=== PATIENT | female | born 1945 | race Caucasian/White ===

== ENCOUNTER → 2018-07-08 07:50 | Outpatient (CLI) | payer MEDICARE, OTHER, SELFPAY ==
[2018-07-08 08:59] LABS: Add Manual Diff / Slide Review NO; Basophils Absolute Auto 100 /uL (0-100); Basophils Percent Auto 1.5 % (0-2); Eosinophils Absolute Auto 400 /uL (0-450); Hematocrit 41.1 % (36-46); Hemoglobin 13.6 g/dL (12.0-16.0); Lymphocytes Absolute Auto 1200 /uL (1100-4500); Lymphocytes Percent Auto 17.3 % (25-40); Mean Corpuscular HGB Conc 33.1 % (30-36); Mean Corpuscular Hemoglobin 28.7 PG (26-34); Mean Corpuscular Volume 86.7 fL (80-100); Monocytes Absolute Auto 600 /uL (0-900); Monocytes Percent Auto 9.2 % (3-14); Neutrophils Absolute Auto 4500 /uL (1500-7000); Platelet Count 311 X10^3/uL (150-400); Red Blood Cell Count 4.73 X10^6/uL (4.0-5.2); Red Cell Distribution Width 13.3 % (11.6-14.8); White Blood Cell Count 6.9 X10^3/uL (4.5-11.0)
[2018-07-08 09:07] LABS: Alanine Aminotransferase 29 IU/L (9-52); Albumin 4.4 g/dL (3.5-5.0); Albumin Globulin Ratio 1.6 (1.0-2.8); Alkaline Phosphatase 78 U/L (38-126); Aspartate Aminotransferase 24 IU/L (14-36); Bilirubin Total 1.4 mg/dL (0.2-1.3); Blood Urea Nitrogen 21 mg/dL (7-17); Calcium 9.5 mg/dL (8.4-10.2); Carbon Dioxide 27 mmol/L (22-32); Chloride 101 mmol/L (98-107); Cholesterol 175 mg/dL (140-199); Estimated Glomerular Filt Rate > 60.0 mL/min (>60); Globulin 2.7 g/dL (1.7-4.1); Glucose 108 mg/dL (80-110); HDL Cholesterol 65 mg/dL (40-60); HEMOLYSIS < 15 (0-50); LDL Cholesterol Calculated 100 mg/dL (<100); Sodium 137 mmol/L (137-145); Total Protein 7.1 g/dL (6.3-8.2); Triglycerides 52 mg/dL (35-150)
[2018-07-08 09:41] LABS: TSH w/ Reflex to FT4 1.94 uIU/mL (0.47-4.68)
== END ==
PROVIDERS: PCP Family Medicine; Visit Provider Family Medicine
DX: E03.9 Hypothyroidism, unspecified (principal); E21.3 Hyperparathyroidism, unspecified; I10 Essential (primary) hypertension
CPT/HCPCS: 36415; 80053; 80061; 84443; 85025

== ENCOUNTER → 2018-07-09 16:04 | Outpatient (CLI) | payer MEDICARE, OTHER, SELFPAY ==
--- NOTE | 2018-07-09 | DI.MG.S_ITS ---
BILATERAL DIGITAL SCREENING MAMMOGRAM 3D/2D WITH CAD: 07/09/2018 CLINICAL: Routine screening. Comparison is made to exams dated: 05/08/2017 mammogram, 03/28/2016 mammogram, and 03/23/2015 mammogram - [facility]. There are scattered fibroglandular elements in both breasts. Current study was also evaluated with a Computer Aided Detection (CAD) system. No significant masses, calcifications, or other findings are seen in either breast. There has been no significant interval change. IMPRESSION: NEGATIVE There is no mammographic evidence of malignancy. A 1 year screening mammogram is recommended. This exam was interpreted at Station ID: [id number]. NOTE: For mammograms, a report in lay terms will be sent to the patient. Approximately 15% of breast malignancies will not be visualized mammographically. In the management of a palpable breast mass, a negative mammogram must not discourage biopsy of a clinically suspicious lesion. Electronically Signed By: Susannah ramirez/abby:07/09/2018 18:35:20 letter sent: Normal Exam ACR BI-RADS Category 1: Negative 3341F
== END ==
PROVIDERS: PCP Family Medicine; Visit Provider Family Medicine
DX: Z12.31 Encounter for screening mammogram for malignant neoplasm of breast (principal)
CPT/HCPCS: 77063; 77067

== ENCOUNTER → 2018-11-26 10:16 | Outpatient (CLI) | payer MEDICARE, OTHER, SELFPAY ==
[2018-11-26 11:06] LABS: Add Manual Diff / Slide Review NO; Basophils Absolute Auto 100 /uL (0-100); Basophils Percent Auto 0.9 % (0-2); Eosinophils Absolute Auto 200 /uL (0-450); Eosinophils Percent Auto 3.7 % (2-4); Hematocrit 39.6 % (36-46); Hemoglobin 13.3 g/dL (12.0-16.0); Lymphocytes Absolute Auto 900 /uL (1100-4500); Mean Corpuscular HGB Conc 33.5 % (30-36); Mean Corpuscular Hemoglobin 28.9 PG (26-34); Monocytes Absolute Auto 500 /uL (0-900); Monocytes Percent Auto 7.8 % (3-14); Neutrophils Absolute Auto 4400 /uL (1500-7000); Neutrophils Percent Auto 72.6 % (50-75); Platelet Count 352 X10^3/uL (150-400); Red Cell Distribution Width 14.4 % (11.6-14.8); White Blood Cell Count 6.1 X10^3/uL (4.5-11.0)
[2018-11-26 12:28] LABS: BUN Creatinine Ratio 18.6 (6-22); Blood Urea Nitrogen 13 mg/dL (7-17); Calcium 10.1 mg/dL (8.4-10.2); Carbon Dioxide 29 mmol/L (22-32); Chloride 101 mmol/L (98-107); Estimated Glomerular Filt Rate > 60.0 mL/min (>60); Glucose 96 mg/dL (80-110); HEMOLYSIS < 15 (0-50); Potassium 4.9 mmol/L (3.4-5.1); Sodium 139 mmol/L (137-145)
== END ==
PROVIDERS: PCP Family Medicine; Visit Provider Podiatrist
DX: Z01.818 Encounter for other preprocedural examination (principal); Z01.812 Encounter for preprocedural laboratory examination
CPT/HCPCS: 36415; 80048; 85025; 93005

== ENCOUNTER → 2019-11-07 08:53 | Outpatient (CLI) | payer MEDICARE, OTHER, SELFPAY ==
[2019-11-07 10:56] LABS: TSH w/ Reflex to FT4 1.46 uIU/mL (0.47-4.68)
== END ==
PROVIDERS: PCP Family Medicine; Referring Provider Family Medicine; Visit Provider Family Medicine
DX: E03.9 Hypothyroidism, unspecified (principal)
CPT/HCPCS: 36415; 84443

== ENCOUNTER → 2020-06-15 08:16 | Outpatient (CLI) | payer MEDICARE, OTHER, SELFPAY ==
--- NOTE | 2020-06-15 | DI.MG.S_ITS ---
BILATERAL DIGITAL SCREENING MAMMOGRAM 3D/2D WITH CAD: 06/15/2020 CLINICAL: Routine screening. Comparison is made to exams dated: 07/09/2018 mammogram, 05/08/2017 mammogram, and 03/28/2016 mammogram - [facility]. There are scattered fibroglandular elements in both breasts. Current study was also evaluated with a Computer Aided Detection (CAD) system. No significant masses, calcifications, or other findings are seen in either breast. There has been no significant interval change. IMPRESSION: NEGATIVE There is no mammographic evidence of malignancy. A 1 year screening mammogram is recommended. This exam was interpreted at Station ID: [id number]. NOTE: For mammograms, a report in lay terms will be sent to the patient. Approximately 15% of breast malignancies will not be visualized mammographically. In the management of a palpable breast mass, a negative mammogram must not discourage biopsy of a clinically suspicious lesion. Electronically Signed By: Joshua Alvarenga M.D., jr/abby:06/15/2020 16:07:52 letter sent: Normal Exam ACR BI-RADS Category 1: Negative 3341F
[2020-06-15 10:51] LABS: Alanine Aminotransferase 15 IU/L (<35); Albumin 4.4 g/dL (3.5-5.0); Albumin Globulin Ratio 1.8 (1.0-2.8); Alkaline Phosphatase 68 U/L (38-126); Aspartate Aminotransferase 22 IU/L (14-36); BUN Creatinine Ratio 27.7 (6-22); Blood Urea Nitrogen 18 mg/dL (7-17); Calcium 9.6 mg/dL (8.4-10.2); Carbon Dioxide 29 mmol/L (22-32); Chloride 98 mmol/L (98-107); Estimated Glomerular Filt Rate > 60.0 mL/min (>60); Globulin 2.4 g/dL (1.7-4.1); Glucose 96 mg/dL (80-110); HEMOLYSIS < 15 (0-50); Potassium 4.3 mmol/L (3.4-5.1); Sodium 133 mmol/L (137-145); Total Protein 6.8 g/dL (6.3-8.2)
[2020-06-15 11:23] LABS: Thyroid Stimulating Hormone 2.39 uIU/mL (0.47-4.68)
== END ==
PROVIDERS: PCP Family Medicine; Referring Provider Family Medicine; Visit Provider Family Medicine
DX: Z12.31 Encounter for screening mammogram for malignant neoplasm of breast (principal); E21.3 Hyperparathyroidism, unspecified; I10 Essential (primary) hypertension
CPT/HCPCS: 36415; 77063; 77067; 80053; 84443

== ENCOUNTER → 2020-08-05 11:53 | Outpatient (CLI) | payer MEDICARE, OTHER, SELFPAY ==
--- NOTE | 2020-08-05 11:54 | DI.US.S_ITS ---
PROCEDURE: US EXTREMITY NONVASC LOWER LT INDICATIONS: cystic mass behind L knee, ? Loomis's cyst, knee pain TECHNIQUE: Real-time scanning was performed of the left knee , with image documentation. COMPARISON: None. FINDINGS: Fluid collection is noted posterior the left knee. No increased vascularity. IMPRESSION: Loomis's cyst. Dictated by: Lynne Howard M.D. on 08/05/2020 at 13:57 Approved by: Lynne Howard M.D. on 08/05/2020 at 14:18
== END ==
PROVIDERS: PCP Family Medicine; Referring Provider Family Medicine; Visit Provider Family Medicine
DX: M71.22 Synovial cyst of popliteal space [Baker], left knee (principal)
CPT/HCPCS: 76882

== ENCOUNTER 2021-04-15 11:08 | Emergency (ER) | payer MEDICARE, OTHER, SELFPAY ==
[2021-04-15 11:18] VITALS: BP 168/123; PULSE 80; RESP 16; TEMP 36.6; O2SAT 97; BMI 24.9
--- NOTE | 2021-04-15 11:21 | DI.RAD.S_ITS ---
PROCEDURE: XR CHEST 1V INDICATIONS: chest pain TECHNIQUE: One view of the chest was acquired. COMPARISON: Located Within [facility], CR, XR CHEST 2VW, 05/24/2016, 11:07. Located Within [facility], CR, XR CHEST 2 VIEWS, 07/06/2019, 12:06. FINDINGS: Surgical changes and devices: None. Lungs and pleura: No focal infiltrates are seen. Minimal generalized interstitial prominence can be seen. No pleural effusions or pneumothorax. Mediastinum: Mediastinal contours appear normal. Heart size is at the upper limits of normal, which has increased in size compared to 2019. Bones and chest wall: No suspicious bony lesions. Overlying soft tissues appear unremarkable. IMPRESSION: The heart size is at the upper limits of normal and minimal interstitial prominence can be seen. Please consider early/mild CHF. Dictated by: Victor M Bynum M.D. on 04/15/2021 at 11:08 Approved by: Victor M Bynum M.D. on 04/15/2021 at 11:09
--- NOTE | 2021-04-15 11:27 | ED.CHESTPAIN ---
HPI - Chest Pain General Chief Complaint: Chest Pain Stated Complaint: chest pain Time Seen by Provider: 04/15/21 11:23 Source: patient Mode of arrival: Ambulatory Limitations: no limitations History of Present Illness HPI narrative: Patient is a 76-year-old female who a hauser left upper back discomfort and left shoulder discomfort. Was initially stated that she was having chest pain however she describes it on her back. It is been present for the past several days. No shortness of breath. She states the pain is made worse by moving her neck. She has tried some it will even home which may be is help the symptoms somewhat. Related Data Home Medications Medication Instructions Recorded Confirmed alendronate 70 mg tablet (Fosamax) 70 mg PO QWEEK #0 06/27/16 06/01/19 cholecalciferol (vitamin D3) 25 1,000 unit PO DAILY 07/15/18 06/01/19 mcg (1,000 unit) capsule Previous Rx's Medication Instructions Recorded montelukast 10 mg tablet 10 mg PO QPM #90 tab 07/15/18 fluticasone 100 mcg-salmeterol 50 1 puff INHALATION QDAY #60 each 12/08/18 mcg/dose blistr powdr for inhalation (Advair Diskus) albuterol sulfate 90 mcg/actuation 1 inhalation INHALATION Q4-6H PRN 05/01/19 breath activated powder inhaler #1 each (ProAir RespiClick) olmesartan 20 mg tablet (Benicar) 20 mg PO QDAY #90 tab 11/15/20 levothyroxine 75 mcg tablet 75 mcg PO QDAY #90 tab 02/10/21 (Synthroid) Allergies Allergy/AdvReac Type Severity Reaction Status Date / Time latex [LATEX] Allergy Intermediate Facial Verified 06/01/19 11:26 swelling Review of Systems Constitutional Constitutional: Denies headache(s) ENT Ears, Nose, Mouth, and Throat: Denies headache(s) Cardiovascular Cardiovascular: Reports as per HPI and Reports system reviewed and no additional complaints, except as documented Respiratory Respiratory: Reports as per HPI and Reports system reviewed and no additional complaints, except as documented Gastrointestinal Gastrointestinal: Reports system reviewed and no additional complaints, except as documented Musculoskeletal Musculoskeletal: Reports system reviewed and no additional complaints, except as documented and Reports as per HPI Integumentary/Breasts Skin/Breast: Reports system reviewed and no additional complaints, except as documented Neurologic Neurologic: Denies headache(s) Hematologic/Lymphatic On Anticoagulants: No Allergic/Immunologic Allergic/Immunologic: Reports system reviewed and no additional complaints, except as documented Patient History Medical History (Updated 04/15/21 @ 13:19 by Blayne Morgan DO) Asthma Chicken pox Colitis Essential hypertension Hyperparathyroidism Hypothyroidism Measles Mumps Osteoporosis Skin cancer Surgical History History of carpal tunnel repair S/P parathyroidectomy Status post bunionectomy Status post colonoscopy Status post parathyroidectomy Family History Brother Age: 67 Stroke Hypertension Mental health problem Father Diabetes mellitus Heart disease Hypertension High cholesterol Grandfather Heart disease Social History marital status: lives independently: Yes education level: college occupational status: other (retired last week!) Smoking Status: Never smoker alcohol intake: current substance use type: does not use Smoking Status: Never smoker Exam Initial Vital Signs Initial Vital Signs: Vital Signs Temperature 97.8 F 04/15/21 11:18 Pulse Rate 80 04/15/21 11:18 Respiratory Rate 16 04/15/21 11:18 Blood Pressure 168/123 H 04/15/21 11:18 Pulse Oximetry 97 04/15/21 11:18 Const General: cooperative, well developed and well groomed Limitations: mental status not altered HENFL Head: normal to inspection Neck Neck: normal visual inspection Chest Chest: normal inspection of the chest, No crepitus and No tenderness Resp Effort & Inspection: normal respiratory effort Auscultation: clear to auscultation bilaterally Cardio Rate: regular rate Rhythm: regular rhythm GI Inspection: non-distended Palpation: soft General: bimanual renal exam normal bilaterally Back/Spine/Pelvis Cervical Spine: No cervical spinal tenderness Skin General: no rashes or lesions noted Neuro General: patient alert, patient awake and moves all extremities Extrem General: normal to inspection and capillary refill normal Other: Patient does have tenderness to palpation over her left scapula. Over the rhomboids and the supraspinatus muscles. Psych Appearance: grossly normal and well kempt Course Orders Ordered: ED Orders 04/15/21 11:21 XR chest 1V Stat EKG-12 Lead Stat 04/15/21 11:27 Complete Blood Count AUTO DIFF Stat Comprehensive Metabolic Panel Stat Lipase Stat Partial Thromboplastin Time Stat Prothrombin Time INR Stat Troponin & CK Cardiac Panel Stat Vital Signs Vital signs: Vital Signs - 8 hr 04/15/21 11:18 Temperature 97.8 F Pulse Rate 80 Respiratory Rate 16 Blood Pressure 168/123 H Pulse Oximetry 97 MDM - Chest Pain Lab Data Attestation: I reviewed the patient's lab results. Result diagrams: 04/15/21 11:04/15/21 11: Labs: Lab Results 04/15/21 04/15/21 04/15/21 Range/Units 11: 11: 11:27 WBC 7.6 (4.5-11.0) X10^3/uL RBC 4.52 (4.0-5.2) X10^6/uL Hgb 12.8 (12.0-16.0) g/dL Hct 38.5 (36-46) % MCV 85.2 (80-100) fL MCH 28.3 (26-34) PG MCHC 33.3 (30-36) % RDW 13.4 (11.6-14.8) % Plt Count 307 (150-400) X10^3/uL Neut % (Auto) 69.9 (50-75) % Lymph % (Auto) 16.8 L (25-40) % Bates % (Auto) 8.5 (3-14) % Eos % (Auto) 3.7 (2-4) % Baso % (Auto) 1.1 (0-2) % Neut # (Auto) 5300 (3492-7745) /uL Lymph # (Auto) 1300 (4871-1686) /uL Bates # (Auto) 600 (0-900) /uL Eos # (Auto) 300 (0-450) /uL Baso # (Auto) 100 (0-100) /uL PT 10.9 (10.1-12.7) SECONDS INR 1.0 (0.9-1.3) APTT 34 (26.4-36.2) SECONDS Sodium 132 L (137-145) mmol/L Potassium 4.1 (3.4-5.1) mmol/L Chloride 101 (98-107) mmol/L Carbon Dioxide 25 (22-32) mmol/L BUN 17 (7-17) mg/dL Creatinine 0.69 (0.52-1.04) mg/dL Estimated GFR > 60.0 (>60) mL/min BUN/Creatinine Ratio 24.6 H (6-22) Glucose 97 (80-110) mg/dL Calcium 9.2 (8.4-10.2) mg/dL Total Bilirubin 1.3 (0.2-1.3) mg/dL AST 24 (14-36) IU/L ALT 16 (<35) IU/L Alkaline Phosphatase 89 (38-126) U/L Total Creatine Kinase 67 (30-135) U/L CK-MB (CK-2) TNP CK-MB (CK-2) Rel Index TNP Troponin I < 0.012 (0.01-0.034) ng/mL Total Protein 7.0 (6.3-8.2) g/dL Albumin 4.3 (3.5-5.0) g/dL Globulin 2.7 (1.7-4.1) g/dL Albumin/Globulin Ratio 1.6 (1.0-2.8) Lipase 94 (23-300) U/L Imaging Data Chest x-ray: Radiologist's Impression: [address] [id number] ReportSigned Patient: Annita Ho [facility]#: [id number]: 7Acct:[id number]/Sex: 76 / FDate of Service: 04/15/21Loc: EDAccession Number: [id number]? ? Procedure: XR chest 1V Ordering Provider: Blayne Morgan D.O. PROCEDURE:? XR CHEST 1V ? INDICATIONS:? chest pain ? TECHNIQUE:? One view of the chest was acquired.? ? COMPARISON:? [facility], CR, XR CHEST 2VW, 05/24/2016, 11:07.? [facility], CR, XR CHEST 2 VIEWS, 07/06/2019, 12:06. ? FINDINGS:? ? Surgical changes and devices:? None.? ? Lungs and pleura:? No focal infiltrates are seen.? Minimal generalized interstitial prominence can be seen.? No pleural effusions or pneumothorax.? ? Mediastinum:? Mediastinal contours appear normal.? Heart size is at the upper limits of normal, which has increased in size compared to 2020.? ? Bones and chest wall:? No suspicious bony lesions.? Overlying soft tissues appear unremarkable.? IMPRESSION:? The heart size is at the upper limits of normal and minimal interstitial prominence can be seen.? Please consider early/mild CHF. ? ? Dictated by: Victor M Bynum M.D. on 04/15/2021 at 11:08? ?? Approved by: Victor M Bynum M.D. on 04/15/2021 at 11:09? ECG Data Attestation: I personally reviewed and interpreted this ECG as follows: Prior ECG tracings: not available for review Interpretation: Sinus rhythm Ventricular rate of 75 looks normal axis Normal QRS Normal QTC No ST T changes MDM Narrative Medical decision making narrative: Chest x-ray is unremarkable, EKG is unremarkable, patient does have reproducible pain in her left shoulder. I have low suspicion for ACS. Low suspicion for dissection. No indication for antibiotics. I did discuss this with her. Liver continue all of her medications. She is given return precautions. She expressed understanding and agreement. Discharge Plan Departure Patient Disposition: Home Clinical Impression: Back pain Instructions: Thoracic Back Pain Activity Restrictions/Additional Instructions: Your workup here in the emergency department is very reassuring. The labs and EKGs OCD with your heart are unremarkable. Continue to take all of your medications as directed. Return to the emergency department for new or worsening symptoms Prescriptions: No Action alendronate [Fosamax] 70 MG tablet 70 mg PO QWEEK Qty: 0 0RF fluticasone propion-salmeterol [Advair Diskus] 100-50 mcg/dose blister with device 1 puff inhalation QDAY Qty: 60 6RF ProAir RespiClick 90 mcg/actuation aerosol powdr breath activated 1 inhalation INHALATION Q4-6H PRN (Reason: shortness of breath or wheezing) Qty: 1 2RF olmesartan [Benicar] 20 mg tablet 20 mg PO QDAY Qty: 90 3RF levothyroxine [Synthroid] 75 mcg tablet 75 mcg PO QDAY Qty: 90 2RF cholecalciferol (vitamin D3) 1,000 unit capsule 1,000 unit PO DAILY 0RF montelukast 10 mg tablet 10 mg PO QPM Qty: 90 0RF Referrals: Srinivas,Pilar, DO [Primary Care Provider] -
[2021-04-15 11:33] LABS: Add Manual Diff / Slide Review NO; Basophils Absolute Auto 100 /uL (0-100); Basophils Percent Auto 1.1 % (0-2); Eosinophils Absolute Auto 300 /uL (0-450); Eosinophils Percent Auto 3.7 % (2-4); Hematocrit 38.5 % (36-46); Hemoglobin 12.8 g/dL (12.0-16.0); Lymphocytes Absolute Auto 1300 /uL (1100-4500); Lymphocytes Percent Auto 16.8 % (25-40); Mean Corpuscular HGB Conc 33.3 % (30-36); Mean Corpuscular Hemoglobin 28.3 PG (26-34); Mean Corpuscular Volume 85.2 fL (80-100); Monocytes Absolute Auto 600 /uL (0-900); Monocytes Percent Auto 8.5 % (3-14); Neutrophils Absolute Auto 5300 /uL (1500-7000); Neutrophils Percent Auto 69.9 % (50-75); Platelet Count 307 X10^3/uL (150-400); Red Blood Cell Count 4.52 X10^6/uL (4.0-5.2); Red Cell Distribution Width 13.4 % (11.6-14.8); White Blood Cell Count 7.6 X10^3/uL (4.5-11.0)
[2021-04-15 11:45] LABS: Prothrombin Time 10.9 SECONDS (10.1-12.7)
[2021-04-15 11:47] LABS: PTT Partial Thromboplastin Tim 34 SECONDS (26.4-36.2)
[2021-04-15 11:49] LABS: Alanine Aminotransferase 16 IU/L (<35); Albumin 4.3 g/dL (3.5-5.0); Albumin Globulin Ratio 1.6 (1.0-2.8); Alkaline Phosphatase 89 U/L (38-126); Aspartate Aminotransferase 24 IU/L (14-36); BUN Creatinine Ratio 24.6 (6-22); Bilirubin Total 1.3 mg/dL (0.2-1.3); Blood Urea Nitrogen 17 mg/dL (7-17); Calcium 9.2 mg/dL (8.4-10.2); Carbon Dioxide 25 mmol/L (22-32); Chloride 101 mmol/L (98-107); Creatine Kinase 67 U/L (30-135); Estimated Glomerular Filt Rate > 60.0 mL/min (>60); Globulin 2.7 g/dL (1.7-4.1); Glucose 97 mg/dL (80-110); HEMOLYSIS 18 (0-50); Lipase 94 U/L (23-300); Potassium 4.1 mmol/L (3.4-5.1); Sodium 132 mmol/L (137-145)
[2021-04-15 12:01] LABS: Troponin I < 0.012 ng/mL (0.01-0.034)
== END 2021-04-15 13:31 | disposition home or self-care (01) ==
PROVIDERS: Emergency Provider Emergency Medicine; PCP Family Medicine
DX: M54.6 Pain in thoracic spine (principal)
CPT/HCPCS: 36415; 71045; 80053; 82550; 83690; 84484; 85025; 85610; 85730; 93005; 99283; 99284

== ENCOUNTER → 2021-08-03 10:06 | Outpatient (CLI) | payer MEDICARE, OTHER, SELFPAY ==
--- NOTE | 2021-08-03 | DI.MG.S_ITS ---
BILATERAL DIGITAL SCREENING MAMMOGRAM 3D/2D WITH CAD: 08/03/2021 CLINICAL: Routine screening. Comparison is made to exams dated: 06/15/2020 mammogram, 07/09/2018 mammogram, and 05/08/2017 mammogram - [facility]. There are scattered fibroglandular elements in both breasts. Current study was also evaluated with a Computer Aided Detection (CAD) system. No significant masses, calcifications, or other findings are seen in either breast. There has been no significant interval change. IMPRESSION: NEGATIVE There is no mammographic evidence of malignancy. A 1 year screening mammogram is recommended. This exam was interpreted at Station ID: [id number]. NOTE: For mammograms, a report in lay terms will be sent to the patient. Approximately 15% of breast malignancies will not be visualized mammographically. In the management of a palpable breast mass, a negative mammogram must not discourage biopsy of a clinically suspicious lesion. Electronically Signed By: Klever guo/abby:08/03/2021 11:03:31 letter sent: Normal Exam ACR BI-RADS Category 1: Negative 3341F
== END ==
PROVIDERS: PCP Family Medicine; Referring Provider Family Medicine; Visit Provider Family Medicine
DX: Z12.31 Encounter for screening mammogram for malignant neoplasm of breast (principal)
CPT/HCPCS: 77063; 77067

== ENCOUNTER → 2021-10-19 09:54 | Outpatient (CLI) | payer MEDICARE, OTHER, SELFPAY ==
[2021-10-19 11:05] LABS: Add Manual Diff / Slide Review NO; Basophils Absolute Auto 100 /uL (0-100); Basophils Percent Auto 1.3 % (0-2); Eosinophils Absolute Auto 300 /uL (0-450); Eosinophils Percent Auto 5.5 % (2-4); Lymphocytes Absolute Auto 1100 /uL (1100-4500); Lymphocytes Percent Auto 20.4 % (25-40); Mean Corpuscular HGB Conc 34.2 % (30-36); Mean Corpuscular Hemoglobin 29.3 PG (26-34); Mean Corpuscular Volume 85.6 fL (80-100); Monocytes Absolute Auto 400 /uL (0-900); Monocytes Percent Auto 7.8 % (3-14); Neutrophils Absolute Auto 3600 /uL (1500-7000); Platelet Count 298 X10^3/uL (150-400); Red Blood Cell Count 4.44 X10^6/uL (4.0-5.2); White Blood Cell Count 5.6 X10^3/uL (4.5-11.0)
[2021-10-19 11:36] LABS: Alanine Aminotransferase 18 IU/L (<35); Albumin 4.4 g/dL (3.5-5.0); Albumin Globulin Ratio 1.9 (1.0-2.8); Alkaline Phosphatase 73 U/L (38-126); Aspartate Aminotransferase 25 IU/L (14-36); BUN Creatinine Ratio 24.3 (6-22); Bilirubin Total 1.3 mg/dL (0.2-1.3); Blood Urea Nitrogen 17 mg/dL (7-17); Calcium 9.5 mg/dL (8.4-10.2); Carbon Dioxide 30 mmol/L (22-32); Chloride 104 mmol/L (98-107); Cholesterol 188 mg/dL (140-199); Estimated Glomerular Filt Rate > 60 mL/min (>60); Globulin 2.3 g/dL (1.7-4.1); Glucose 95 mg/dL (80-110); HDL Cholesterol 87 mg/dL (40-60); HEMOLYSIS < 15 (0-50); LDL Cholesterol Calculated 85 mg/dL (<100); Potassium 4.7 mmol/L (3.4-5.1); Sodium 138 mmol/L (137-145); Total Protein 6.7 g/dL (6.3-8.2); Triglycerides 78 mg/dL (35-150)
[2021-10-19 11:46] LABS: NT-proBNP (BNP-Adult 18+) 110 pg/mL (<125)
[2021-10-19 12:07] LABS: TSH w/ Reflex to FT4 1.36 uIU/mL (0.47-4.68)
== END ==
PROVIDERS: PCP Family Medicine; Referring Provider Family Medicine; Visit Provider Family Medicine
DX: R42 Dizziness and giddiness (principal); E03.9 Hypothyroidism, unspecified; R07.9 Chest pain, unspecified
CPT/HCPCS: 36415; 80053; 80061; 83880; 84443; 85025

== ENCOUNTER → 2022-11-08 09:06 | Outpatient (CLI) | payer MEDICARE, SELFPAY ==
--- NOTE | 2022-11-08 | DI.MG.S_ITS ---
BILATERAL DIGITAL SCREENING MAMMOGRAM 3D/2D WITH CAD: 11/08/2022 CLINICAL: Routine screening. Comparison is made to exams dated: 08/03/2021 mammogram, 06/15/2020 mammogram, and 07/09/2018 mammogram - [facility]. There are scattered areas of fibroglandular density in both breasts (category b / 25%-50% glandular tissue). Current study was also evaluated with a Computer Aided Detection (CAD) system. No significant masses, calcifications, or other findings are seen in either breast. There has been no significant interval change. IMPRESSION: NEGATIVE There is no mammographic evidence of malignancy. A 1 year screening mammogram is recommended. Based on the Tyrer Cuzick model (a risk assessment model) the patient's lifetime risk is 3.0% and her 10 year risk is 3.0%. According to the ACR, ACS, and NCCN guidelines, an annual breast MRI exam along with mammogram is recommended if the patient's lifetime risk is 20% or greater. This exam was interpreted at Station ID: [id number]. NOTE: For mammograms, a report in lay terms will be sent to the patient. Approximately 15% of breast malignancies will not be visualized mammographically. In the management of a palpable breast mass, a negative mammogram must not discourage biopsy of a clinically suspicious lesion. Electronically Signed By: Klever guo/abby:11/08/2022 13:00:44 letter sent: Normal Exam ACR BI-RADS Category 1: Negative 3341F
== END ==
PROVIDERS: PCP Family Medicine; Referring Provider Family Medicine; Visit Provider Family Medicine
DX: Z12.31 Encounter for screening mammogram for malignant neoplasm of breast (principal)
CPT/HCPCS: 77063; 77067

== ENCOUNTER → 2023-12-24 08:59 | Outpatient (CLI) | payer MEDICARE, SELFPAY ==
--- NOTE | 2023-12-24 09:00 | DI.MG.S_ITS ---
BILATERAL DIGITAL SCREENING MAMMOGRAM 3D/2D WITH CAD: 12/24/2023 CLINICAL: Routine screening. Comparison is made to exams dated: 11/08/2022 mammogram, 08/03/2021 mammogram, 06/15/2020 mammogram, 07/09/2018 mammogram, and 05/08/2017 mammogram - [facility]. There are scattered areas of fibroglandular density in both breasts (category b / 25%-50% glandular tissue). Current study was also evaluated with a Computer Aided Detection (CAD) system. No significant masses, calcifications, or other findings are seen in either breast. There has been no significant interval change. IMPRESSION: NEGATIVE There is no mammographic evidence of malignancy. A 1 year screening mammogram is recommended. Based on the Tyrer Cuzick model (a risk assessment model) the patient's lifetime risk is 2.8% and her 10 year risk is 0.0%. According to the ACR, ACS, and NCCN guidelines, an annual breast MRI exam along with mammogram is recommended if the patient's lifetime risk is 20% or greater. This exam was interpreted at Station ID: [id number]. NOTE: For mammograms, a report in lay terms will be sent to the patient. Approximately 15% of breast malignancies will not be visualized mammographically. In the management of a palpable breast mass, a negative mammogram must not discourage biopsy of a clinically suspicious lesion. Electronically Signed By: Mary Ring M.D., Ph.D. karley/abby:12/24/2023 12:14:45 copy to: JOHN HUA letter sent: Normal Exam ACR BI-RADS Category 1: Negative 3341F
== END ==
PROVIDERS: PCP Nurse Practitioner Family; Referring Provider Nurse Practitioner Family; Visit Provider Nurse Practitioner Family
DX: Z12.31 Encounter for screening mammogram for malignant neoplasm of breast (principal); R92.323 Mammographic fibroglandular density, bilateral breasts
CPT/HCPCS: 77063; 77067